=== PATIENT | female | born 1995 | race Caucasian/White ===

== ENCOUNTER 2023-09-14 05:50 | Inpatient (IN) | payer OTHER, SELFPAY ==
[2023-09-14 06:20] VITALS: BMI 30.7
[2023-09-14 06:22] VITALS: BP 115/71
[2023-09-14 07:22] LABS: Hematocrit 32.6 % (37.0-47.0); Hemoglobin 10.3 g/dL (12.0-16.0); Mean Corp Hgb Conc. 31.6 g/dL (33.0-37.0); Mean Corpuscular Hgb 25.4 pg (27.0-31.0); Mean Corpuscular Volume 80.5 fL (81.0-99.0); Mean Platelet Volume 8.6 fL (7.4-10.4); Platelet Count 250 10^3/uL (130-400); Red Blood Cell Count 4.05 10^6/uL (4.20-5.40); White Blood Cell Count 6.9 10^3/uL (4.8-10.8)
[2023-09-14] MEDS: TYLENOL 1000 MG PO (07:22)
[2023-09-14] MEDS: BICITRA 30 ML PO (07:22)
[2023-09-14] MEDS: ANCEF 10 IV (07:22)
[2023-09-14] MEDS: TORADOL 15 MG IV ×2 (15:00→20:30)
[2023-09-15] MEDS: MYLICON 80 MG PO ×2 (00:03→19:59)
[2023-09-15] MEDS: TORADOL 15 MG IV ×2 (02:38→08:25)
[2023-09-15 06:25] LABS: Hematocrit 27.9 % (37.0-47.0); Hemoglobin 8.7 g/dL (12.0-16.0); Mean Corp Hgb Conc. 31.2 g/dL (33.0-37.0); Mean Corpuscular Hgb 25.7 pg (27.0-31.0); Mean Corpuscular Volume 82.5 fL (81.0-99.0); Mean Platelet Volume 9.2 fL (7.4-10.4); Platelet Count 225 10^3/uL (130-400); Red Blood Cell Count 3.38 10^6/uL (4.20-5.40); White Blood Cell Count 8.2 10^3/uL (4.8-10.8)
[2023-09-15] MEDS: SENOKOT-S 1 TABLET PO (08:25)
[2023-09-15] MEDS: PRENATAL PLUS 1 TABLET PO (08:25)
[2023-09-15 14:34] LABS: Syphilis/T. pallidum Ab Reflex Negative (Negative)
[2023-09-15] MEDS: MOTRIN 600 MG PO (20:16)
[2023-09-16] MEDS: TYLENOL 650 MG PO (00:22)
[2023-09-16] MEDS: SENOKOT-S 1 TABLET PO (08:31)
[2023-09-16] MEDS: PRENATAL PLUS 1 TABLET PO (08:31)
[2023-09-16] MEDS: MOTRIN 600 MG PO (08:31)
[2023-09-16] MEDS: FEOSOL 325 MG PO (08:32)
--- NOTE | 2023-09-16 10:29 | W.DS.TRANS ---
DC Summary - Programs Manager
-
Discharge Instructions:
Discharge Diagnosis/Procedures repeat cesearean
Instructions:
Stand-Alone Forms: [facility]DRP Delivery
Changes to Home Medications: No
Discharge Medications:
DC Medications w/original date entered in [facility]
vitamin-ferrous fumarate 28 mg iron-folic acid 800 mcg tablet 1 ea PO DAILY Supplement 03/27/20
acetaminophen 325 mg tablet 650 mg (2 x 325 mg) PO Q4HPRN PRN mild pain #0 tabs 09/16/23
ferrous sulfate 325 mg (65 mg iron) tablet (FeroSul) 325 mg PO DAILY #0 tabs 09/16/23
ibuprofen 600 mg tablet 600 mg PO Q6HPRN PRN cramps #0 tabs 09/16/23
sennosides 8.6 mg-docusate sodium 50 mg tablet (Stool Softener-Stimulant Laxative) 1 tab PO DAILYPRN PRN constipation #0 tabs 09/16/23
simethicone 80 mg chewable tablet 80 mg PO TIDPRN PRN flatulence #0 tabs 09/16/23
Home Medication Changes
Pending Results: No
Total time spent discharging patient (in min): 20
== END 2023-09-16 12:27 | disposition home or self-care (01) | DRG 788 ==
LOC: LDRP 05:50
PROVIDERS: Obstetrics & Gynecology; ADMITTING PHYSICIAN Obstetrics & Gynecology
PROC: 10D00Z1 Extraction of Products of Conception, Low, Open Approach (ICD-10-PCS; 2023-09-14)
DX: O34.211 Maternal care for low transverse scar from previous cesarean delivery (principal); Z37.0 Single live birth; O99.824 Streptococcus B carrier state complicating childbirth; Z3A.39 39 weeks gestation of pregnancy; N85.8 Other specified noninflammatory disorders of uterus; D50.0 Iron deficiency anemia secondary to blood loss (chronic); O99.02 Anemia complicating childbirth; Z87.891 Personal history of nicotine dependence
CPT/HCPCS: 85027; 86780; 86850; 86900; 86901

== ENCOUNTER → 2023-10-28 11:09 | Outpatient (REF) | payer OTHER, SELFPAY | LOC: HWRAD 11:09 | PROVIDERS: ATTENDING PHYSICIAN Obstetrics & Gynecology | DX: L08.9 Local infection of the skin and subcutaneous tissue, unspecified (principal) | CPT/HCPCS: 74176 ==